=== PATIENT | male | born 2000 | race Caucasian/White ===

== ENCOUNTER 2021-01-08 12:35 | Emergency (ER) | payer BC, OTHER | END 2021-01-08 13:44 | disposition home or self-care (01) | LOC: MADERS 12:35 | DX: L50.0 Allergic urticaria (principal); S56.912A Strain of unspecified muscles, fascia and tendons at forearm level, left arm, initial encounter; J45.909 Unspecified asthma, uncomplicated; Z79.51 Long term (current) use of inhaled steroids; Z79.899 Other long term (current) drug therapy; X58.XXXA Exposure to other specified factors, initial encounter | CPT/HCPCS: 96372; 99282; J1040 ==